=== PATIENT | male | born 1980 | race African-American/Black ===

== ENCOUNTER → 2023-01-10 | Outpatient (CLI) | payer OTHER | END | disposition home or self-care (01) | LOC: EEVIPCON 09:22 → RAH 09:22 | PROVIDERS: ATTEND Family Medicine | DX: S12.110G Anterior displaced Type II dens fracture, subsequent encounter for fracture with delayed healing (principal); M47.812 Spondylosis without myelopathy or radiculopathy, cervical region; M48.02 Spinal stenosis, cervical region; X58.XXXD Exposure to other specified factors, subsequent encounter | CPT/HCPCS: 72125; 72141 ==